=== PATIENT | male | born 1980 | race Caucasian/White ===

== ENCOUNTER 2018-03-01 16:51 | Outpatient (CLI) | payer OTHER | END 2018-03-01 16:54 | disposition home or self-care (01) | LOC: SLEEP 16:51 | PROVIDERS: ATTEND Internal Medicine | DX: G47.33 Obstructive sleep apnea (adult) (pediatric) (principal); G47.10 Hypersomnia, unspecified; R06.83 Snoring; I10 Essential (primary) hypertension ==